=== PATIENT | male | born 1940 | race Caucasian/White ===

== ENCOUNTER 2017-01-08 09:57 | Emergency (ER) | payer OTHER ==
[~2017-01-08] VITALS: Ht 175.3 cm; Wt 77.0 kg
[~2017-01-08 09:57] MED LIST: ASPI-496 PO; NEBI5TAB2 PO; TAMS0.4C2 PO
[2017-01-08] MEDS ORDERED: SODIUM CHLORIDE 0.9% 1,000ML IVBOLUS ONE (10:30)
[2017-01-08] MEDS ORDERED: SODIUM CHLORIDE FLUSH 10ML SYR IVF ONE (10:30)
[2017-01-08] MEDS ORDERED: MECLIZINE CHEWABLE 25 MG TAB PO ONE (10:30)
[2017-01-08 10:48] LABS: HEMOGLOBIN 15.3 g/dL (13.7-18.0)
[2017-01-08] MEDS ORDERED: MECLIZINE CHEWABLE 25 MG TAB ONE (10:49)
[2017-01-08 11:00] LABS: BLOOD UREA NITROGEN 25 mg/dL (7-18)
[2017-01-08] MEDS ORDERED: PHEN50TA PO (11:35)
[2017-01-08 12:26] VITALS: BP 151/66
== END 2017-01-08 12:28 | disposition home or self-care (01) ==
LOC: ED 11:09
DX: H81.10 Benign paroxysmal vertigo, unspecified ear (principal); I10 Essential (primary) hypertension; Z88.2 Allergy status to sulfonamides
CPT/HCPCS: 36415; 70450; 80048; 81003; 82040; 85025; 93005; 96360; 99285; J7030

== ENCOUNTER 2017-03-09 12:41 | Emergency (ER) | payer OTHER ==
[~2017-03-09] VITALS: Ht 175.3 cm; Wt 74.8 kg
[~2017-03-09 12:41] MED LIST changes: +PHEN50TA PO
[2017-03-09 14:55] LABS: ASPARTATE AMINO TRANSFERASE 28 U/L (15-37); BLOOD UREA NITROGEN 35 mg/dL (7-18)
[2017-03-09 15:01] LABS: IS PT STATUS REG ER OR PRE ER? YES
[2017-03-09 17:14] VITALS: BP 121/49
== END 2017-03-09 17:15 | disposition home or self-care (01) ==
LOC: ED 14:19
DX: R41.0 Disorientation, unspecified (principal); R53.1 Weakness; I10 Essential (primary) hypertension; Z88.2 Allergy status to sulfonamides
CPT/HCPCS: 36415; 70450; 80053; 81003; 83605; 84484; 85025; 87040; 93005; 99285